=== PATIENT | female | born 1995 | race Two or more races ===

== ENCOUNTER 2024-11-04 19:17 | Inpatient (IN) ==
[2024-11-04] MEDS ORDERED: CALCIUM CARBONATE 500 MG CHEWABLE TAB PO PRN (22:47)
[2024-11-04] MEDS ORDERED: ACETAMINOPHEN 500 MG TAB PO PRN (22:47)
--- NOTE | 2024-11-04 22:51 | History & Physical Report ---
Date of Service November 04, 2024 Assessment & Plan (1) Normal labor: Plan: Bethany is a 29-year-old G1, P0 currently at 40 weeks 2 days gestational age presents in labor. Presented as an unassigned patient and typically receives care through [facility]. has been uncomplicated to date per her report and per best assessment of the available report. Category 1 tracing noted. Vitals within normal limits and will continue to monitor. Planning to proceed with epidural. GBS negative. and medical history reviewed as part of an initial care visit (2) Post-term , 40-42 weeks of gestation: History of Present Illness Primary Care Provider: NO PCP Bethany is a 29-year-old G1, P0 currently at 40 weeks 2 days gestational age presents in labor. Was receiving care through [facility]. Presented here for delivery as an unassigned patient. Reports uncomplicated to date. labs reviewed and noted to be normal Allergies Allergy/AdvReac Type Severity Reaction Status Date / Time No Known Allergies Allergy Unverified 11/04/24 20:16 Home Medications Medication Instructions Recorded Confirmed Type loratadine 10 mg tablet (Claritin) 10 mg PO DAILY 11/04/24 11/04/24 History vit no.95-ferrous 1 tab PO DAILY 11/04/24 11/04/24 History fumarate 28 mg-folic acid 800 mcg tablet () sertraline 50 mg tablet 50 mg PO DAILY 11/04/24 11/04/24 History Patient History Medical History (Updated 11/04/24 @ 22:54 by Deion Montemayor MD) Migraine Depression Surgical History (Updated 11/04/24 @ 20:16 by Robyn Loza RN) History of elbow surgery [place] teeth extracted Social History Smoking Status: Never smoker Hx Alcohol Use: No Hx Substance Use: No Preferred Language: [place] Communication Ability: Effective 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 Beliefs That Will Affect Care: None marital status: Current Living Situation: Spouse Other Information That Helps Us Care for You: No Feels Safe at Home: Yes Safety Concerns: Feels Safe At This Time Assistive Devices: Glasses Physical Exam Genitourinary: Manual OB Exam: + cervical dilation (5-6), + cervical effacement 90% and + station -2 OB Exam Monitor Tracing: + external FHT monitor used, + external uterine monitor used, + category I and + normal FHT variability Results & Data Vital Signs (Past 12 Hours) Vital Signs Temp Pulse Resp BP 11/04/24 19:43 105 H 140/87 11/04/24 19:26 36.9 C 16 Coding Level of Care Code 80658 INT INP/OBS CARE 2/55MIN Diagnoses Normal labor O80; Z37.9 Post-term , 40-42 weeks of gestation O48.0
[2024-11-04 23:19] LABS: Hematocrit (blood only) 30.7 % (37.0-47.0); Hemoglobin 9.9 g/dl (12.0-16.0); Mean Corpuscular Hemoglobin 26.5 pg (25.0-34.0); Mean Corpuscular Hgb Conc 32.2 g/dL (32.0-36.0); Mean Corpuscular Volume 82.3 fL (80.0-100.0); Mean Platelet Volume 10.5 fL (9.4-12.4); Platelet Count 248 K/uL (130-400); RDW Coefficient of Variation 13.3 % (11.5-14.5); RDW Standard Deviation 39.5 fL (36.4-46.3); Red Blood Count 3.73 M/uL (4.20-5.40); White Blood Count 12.89 K/ul (4.8-10.8)
[2024-11-04] MEDS: SODIUM CHLORIDE 0.9% 1,000 ML IV SCH (23:34)
[2024-11-04] MEDS ORDERED: fentANYL 2 MCG/ML BUPIVacaine 0.125%-NSS 100ML BAG EPI PRN (23:48)
[2024-11-04] MEDS ORDERED: LIDOCAINE 2% MPF LOCAL 5 ML VIAL EPI PRN (23:48)
[2024-11-04] MEDS ORDERED: ePHEDrine sulfate 50 MG/ML AMP IV PRN (23:48)
[2024-11-04] MEDS ORDERED: NALOXONE HCL 1 MG in SODIUM CHLORIDE 0.9% 1,000 ML IV PRN (23:48)
[2024-11-04] MEDS ORDERED: ROPIVACAINE 0.5% PF 5 MG/ML 20 ML VIAL EPI PRN (23:48)
[2024-11-04] MEDS ORDERED: diphenhydrAMINE 50 MG/ML VIAL IV PRN (23:48)
[2024-11-04] MEDS ORDERED: SODIUM CHLORIDE 0.9% PF INJ 10 ML VIAL EPI PRN (23:48)
[2024-11-04] MEDS ORDERED: NALOXONE HCL 0.4 MG/1 ML VIAL/CARP IV PRN (23:48)
[2024-11-04] MEDS ORDERED: BUPIVACAINE 0.25% PF 30 ML VIAL EPI PRN (23:48)
[2024-11-04] MEDS ORDERED: fentaNYL citrate PF 100 MCG/2 ML VIAL EPI PRN (23:48)
[2024-11-04] MEDS ORDERED: NALBUPHINE HCL INJ 10 MG/ML AMP IV PRN (23:48)
--- NOTE | 2024-11-04 23:51 | Anesthesiology Consultation ---
Date of Service November 04, 2024 Assessment & Plan Chart Review Chart Review: Patient NOT seen in Pre Admission Testing and Acceptable Risk for Labor Epidural Consults Requested none ASA ASA2 Proposed Anesthesia Anesthesia Type: Labor Epidural Risk / Benefits Reviewed With: PT / POA / Parent / Guardian, Accepts Plan and Informed Consent Obtained History Height/Weight Height: 5 ft 7 in Weight: 86.636 kg Allergies Allergy/AdvReac Type Severity Reaction Status Date / Time No Known Allergies Allergy Unverified 11/04/24 20:16 Medications Home Medications Medication Instructions Recorded Confirmed Last Taken loratadine 10 mg tablet (Claritin) 10 mg PO DAILY 11/04/24 11/04/24 11/04/24 04:00 vit no.95-ferrous 1 tab PO DAILY 11/04/24 11/04/24 11/04/24 04:00 fumarate 28 mg-folic acid 800 mcg tablet () sertraline 50 mg tablet 50 mg PO DAILY 11/04/24 11/04/24 11/04/24 04:00 Active Medications Generic Name Dose Route Start Last Admin Trade Name Freq PRN Reason Stop Dose Admin Sodium Chloride 1,000 mls @ 50 mls/hr 11/04/24 23:45 11/04/24 23:34 Nss IV 11/05/24 23:44 999 mls/hr .Q20H DARNELL Administration NPO Date Last Intake of Fluids: 11/04/24 Time Last Intake of Fluids: 23:00 Date Last Intake of Solids: 11/04/24 Time Last Intake of Solids: 18:00 Past Medical History Medical History Migraine Depression Exercise / Class Metabolic Activity 1 > 8 Run/Swim/Ski/Tennis Past Surgical History Surgical History History of elbow surgery [place] teeth extracted Past Anesthesia History No Hx of Anesthesia Complications and No Family Hx of Anesthesia Complications History of PONV No Hx of PONV and No Hx of Motion Sickness Social History Smoking Status: Never smoker Hx Alcohol Use: No Hx Substance Use: No Review of Systems ROS Unobtainable: All systems reviewed & are unremarkable except as noted in HPI & below Physical Exam Vital Signs Last Vital Signs Temp 36.8 C 11/04/24 23:14 Pulse 106 H 11/04/24 23:12 Resp 18 11/04/24 23:14 BP 118/59 L 11/04/24 23:12 O2 Del Method Room Air 11/04/24 23:14 ENMT Mouth: no TMJ abnormality Thyromental Distance: > or= 3.5 Finger Breadths Mallampati Class: II Neck normal visual inspection and trachea midline; neck extension not limited Respiratory normal respiratory effort Auscultation: lungs clear to auscultation bilaterally Cardiovascular Rate/Rhythm: regular rate and regular rhythm Heart Sounds: no murmur Musculoskeletal Spine: normal cervical ROM Extremities: full ROM of extremities Neurologic moves all extremities Psychiatric Orientation: alert and oriented x 3 Testing Laboratory Results 11/04/24 22:54
[2024-11-05] MEDS: LIDOCAINE 2%/EPINEPHRINE 1:200,000 20 ML PF ONE (00:07)
[2024-11-05] MEDS: BUPIVACAINE 0.25% PF 30 ML VIAL ONE (00:07)
[2024-11-05] MEDS: fentaNYL citrate PF 100 MCG/2 ML VIAL ONE (00:07)
[2024-11-05] MEDS: fentANYL 2 MCG/ML BUPIVacaine 0.125%-NSS 100ML BAG ONE (00:10)
[2024-11-05] MEDS: ePHEDrine sulfate 50 MG/ML AMP ONE (00:24)
[2024-11-05] MEDS: SODIUM CHLORIDE 0.9% PF INJ 10 ML VIAL ONE (00:24)
[2024-11-05] MEDS: BUPIVACAINE 0.25% PF 30 ML VIAL EPI STA (00:24)
[2024-11-05] MEDS: fentaNYL citrate PF 100 MCG/2 ML VIAL EPI STA (00:24)
[2024-11-05] MEDS: LIDOCAINE 2%/EPINEPHRINE 1:200,000 20 ML PF EPI STA (00:25)
[2024-11-05] MEDS: SODIUM CHLORIDE 0.9% PF INJ 10 ML VIAL EPI STA (00:25)
[2024-11-05] MEDS: OXYTOCIN 30 UNITS/NSS 30 UNITS/500 ML BAG IV PRN (06:12)
[2024-11-05] MEDS: LIDOCAINE 1% LOCAL 20 ML VIAL INFIL PRN (06:27)
[2024-11-05] MEDS: miSOPROStoL 200 MCG TAB ONE (06:36)
[2024-11-05] MEDS ORDERED: OXYTOCIN 30 UNITS/NSS 30 UNITS/500 ML BAG IV PRN (06:46)
[2024-11-05] MEDS ORDERED: bisacodyL 10 MG SUPP PR PRN (06:46)
[2024-11-05] MEDS ORDERED: HYDROCORTISONE ACETATE 25 MG SUPP PR PRN (06:46)
--- NOTE | 2024-11-05 06:50 | Delivery Summary ---
Vaginal Delivery Summary Date of Service November 05, 2024 Vaginal Delivery Summary and 1st Degree LAC Patient progressed to 10 cm dilated, 100% effaced, +2 station pushed over intact perineum with epidural anesthesia and delivered a viable female male with weight and Apgars pending. Had the delivered without difficulty quickly followed by shoulders and body. There was noted to be a tight nuchal cord which was delivered through. was noted to be vigorous soon after delivery and a 1 minute delayed cord clamping was initiated. Cord was then double clamped and cut and remained maternal abdomen. Cord blood obtained and attention was turned delivery of the placenta. Placenta delivered with shearing of membranes noted. There is noted to be membranes still present at the introitus and attempt to remove the entire the membranes showed a arellano ring of the membranes again. A right angled retractor was placed for better visualization and the membranes were noted at the cervical os. The membranes were grasped with a ring forcep and extracted with a twisting motion. Patient was noted to have moderate bleeding throughout this process and bleeding was noted to markedly improve after the membranes were fully extract. On inspection of perineum vagina and cervix there is noted to be bilateral periurethral lacerations was repaired with 3-0 Vicryl in continuous running stitch. There is also noted to be a first-degree perineal laceration which was repaired with 3-0 Vicryl continuous running stitch. Needle sponge and instrument counts are correct at the completion of the case. Both mother and stable in the immediate post delivery timeframe. QBL per chart. [facility] Vaginal Delivery Charge Delivery Type Details: and 1st Degree LAC
[2024-11-05] MEDS: DIPHTHER/TETAN/PERTUS Vaccine (Tdap, Adol/Adult) 0.5mL IM ONE (08:37)
[2024-11-05] MEDS: miSOPROStoL 200 MCG TAB PR ONE (08:37)
[2024-11-05] MEDS: SERTRALINE HCL 50 MG TABLET PO SCH (08:43)
[2024-11-05] MEDS: PRENATAL VITAMIN 1 TAB PO SCH (08:43)
[2024-11-05] MEDS: FERROUS SULFATE 325 MG TAB PO SCH (08:43)
[2024-11-05] MEDS: DOCUSATE SODIUM 100 MG CAP PO SCH (08:43)
[2024-11-05] MEDS: BENZOCAINE 20% SPRY 85 APPLN/85 GM CAN EXT PRN (09:08)
--- NOTE | 2024-11-05 11:06 | Anesthesia Procedure Note ---
Date of Service November 05, 2024 Anesthesia Post Epidural Note Vital Signs Vital Signs: Temp Pulse Resp BP Pulse Ox O2 Del Method 37.5 C 114 H 18 129/88 99 Room Air 11/05/24 09:45 11/05/24 09:45 11/05/24 09:45 11/05/24 09:45 11/05/24 09:45 11/05/24 09:45 Pain Intensity Perineal: Pain Intensity: 2 Notes Mental Status: alert / awake / arousable Nausea / Vomiting: adequately controlled Pain: adequately controlled Airway Patency, RR, SpO2: stable & adequate BP & HR: stable & adequate Hydration State: stable & adequate Neuraxial Anesthesia: was administered and sensory block is resolving Anesthetic Complications: no major complications apparent and Pt Satisfied with anesthetic care Epidural: Removed without complications and With tip intact
[2024-11-05] MEDS: IBUPROFEN 600 MG TAB PO PRN (19:31)
[2024-11-06 07:21] LABS: Hematocrit (blood only) 21.7 % (37.0-47.0); Mean Corpuscular Hemoglobin 26.7 pg (25.0-34.0); Mean Corpuscular Hgb Conc 32.3 g/dL (32.0-36.0); Mean Corpuscular Volume 82.8 fL (80.0-100.0); Mean Platelet Volume 10.5 fL (9.4-12.4); Platelet Count 156 K/uL (130-400); RDW Coefficient of Variation 13.5 % (11.5-14.5); RDW Standard Deviation 40.4 fL (36.4-46.3); Red Blood Count 2.62 M/uL (4.20-5.40)
[2024-11-06] MEDS ORDERED: SODIUM CHLORIDE 0.9% 50 ML IV PRN (08:04)
[2024-11-06] MEDS ORDERED: SODIUM CHLORIDE 0.9% 100 ML IV PRN (08:04)
[2024-11-06] MEDS ORDERED: ACETAMINOPHEN 650 MG SUPP PR STA (08:04)
--- NOTE | 2024-11-06 08:04 | Obstetrical Progress Note ---
Date of Service November 06, 2024 Assessment & Plan (1) Encounter for assessment: (2) hemorrhage: (3) Acute anemia: Plan Discussed pros/cons of blood transfusion and she accepts as she is symptomatic. Consent reviewed and signed. Plan one unit at present. Otherwise , continue ppd1 activities. Day #:: 1 Subjective Ambulation: ambulating normally Voiding: no voiding problems Passing Gas:: Yes Diet Tolerance:: regular diet Lochia:: Small Feeding Type:: breast feeding Patient has been up most of the night. Notes very fatigues and feeling her heart racing , even at rest. No lightheadedness or dizziness. vitals are stable hgb from 9.9-->7.0 Physical Exam Constitutional WD/WN, vitals as above Cardiovascular RRR, no murmur, no edema (pulse 90s-100s) Extremities: no calf tenderness and no edema Gastrointestinal (Abdomen) soft, nt, nd ff/nt at 1 below u Psychiatric A+Ox3, euthymic affect Results & Data Vital Signs (Past 12 Hours) Vital Signs Temp Pulse Pulse Pulse Resp BP BP 11/06/24 07:40 36.8 C 88 18 125/88 11/06/24 05:45 36.5 C 93 H 18 107/68 11/06/24 03:15 36.4 C L 96 H 18 118/81 11/05/24 23:40 36.5 C 87 17 114/75 Pulse Ox O2 Del Method 11/06/24 07:40 Room Air 11/06/24 05:45 99 Room Air 11/06/24 03:15 99 Room Air 11/05/24 23:40 100 Room Air
[2024-11-06] MEDS ORDERED: Nursing to Pharmacy Communication SCH (09:00)
[2024-11-06] MEDS: ACETAMINOPHEN 325 MG TAB PO STA (09:05)
[2024-11-06] MEDS: bisacodyL 5 MG TABEC PO SCH (21:19)
[2024-11-06] MEDS: ACETAMINOPHEN 325 MG TAB PO PRN (23:07)
[2024-11-07 06:19] LABS: Hematocrit (blood only) 27.7 % (37.0-47.0); Hemoglobin 8.9 g/dl (12.0-16.0)
--- NOTE | 2024-11-07 06:21 | Obstetrical Progress Note ---
Date of Service November 07, 2024 Assessment & Plan (1) Encounter for assessment: (2) hemorrhage: (3) Acute anemia: Plan Bethany is a 29yo post- day 2 s/s complicated by hemorrhage. Feels well today, VSS Hgb resolving post-transfusion 1U on 11/06/24 (7.0->8.9) Continue care Encourage ambulation and Pain control with ibuprofen, tylenol as needed Discharge home today, followup with Dr. Montemayor in 6wks. Admission and Anticipated Discharge Date Admission Date: November 04, 2024 Supervising Physician Co-Signing Physician Notes Resident Physician Supervision Note: I interviewed and examined the patient. Discussed with Dr. Peters and agree with findings and plan as documented in the note. Any exceptions or clarifications are listed here: Doing well, s/p transfusion. Plan d/c. Instructions given. Advised can contact us day/night with our office number. Documented By: Robyn Loyola MD, FACOG Subjective Bethany is a 29yo post- day 2 s/s complicated by hemorrhage. S/p transfusion of 1U blood day prior (11/06/24), feeling much better this AM and endorses sleeping well overnight. Ambulation: ambulating normally Voiding: BMs and urinating Passing Gas:: Yes Diet Tolerance:: regular diet Pain: mild abdominal and breast soreness, otherwise tolerable Lochia:: Small, decreasing Feeding Type:: , supplementing with bottle, no concerns at this time No heart racing, no lightheadedness or dizziness. VSS. Hgb from 7.0 -> 8.9 Review of Systems Review of Systems: no fever, body aches, chills, sweats, headache, SOB, chest pain, lower extremity pain/swelling/numbness/tingling Physical Exam Physical Exam: Constitutional: WD/WN, vitals as above, appearing in no acute distress Pulmonary: clear to auscultation b/l, no wheeze/rales/rhonchi Cardiovascular: RRR, no murmur, no edema (pulse 90s-100s) Extremities: no calf tenderness to palpation, no erythema or significant edema Gastrointestinal (Abdomen): +BS, soft, mild tenderness to palpation of suprapubic region; uterine fundus firm, palpated midline 1 fingerwidth inferior to umbilicus Psychiatric: A+Ox3, euthymic affect Results & Data Vital Signs (Past 12 Hours) Vital Signs Temp Pulse Resp BP Pulse Ox O2 Del Method 11/07/24 04:19 95 H 18 133/85 11/06/24 23:24 36.7 C 92 H 18 130/88 98 Room Air 11/06/24 20:00 36.6 C 97 H 18 126/82 98 Room Air Laboratory Results Abnormal lab results 11/05/24 11/06/24 11/07/24 Range/Units 07:12 06:20 06:09 WBC 12.30 H (4.8-10.8) K/ul RBC 2.62 L (4.20-5.40) M/uL Hgb 7.0 L D 8.9 L (12.0-16.0) g/dl Hct 21.7 L 27.7 L (37.0-47.0) % Crossmatch See Detail Resident Activity Tracking Resident Involvement: Resident Care Provided Care Provided: OB Delivery
[2024-11-07 07:10] VITALS: BP 125/77; PULSE 110; RESP 16; TEMP 97.5; O2SAT 99
== END 2024-11-07 12:43 | disposition home or self-care (01) | DRG 806 ==
LOC: OPB 19:17 → 4S1 19:23 → 4E2 11-05 09:25